=== PATIENT | male | born 1965 | race Caucasian/White ===

== ENCOUNTER 2020-01-01 17:08 | Outpatient (REF) | payer OTHER, SELFPAY | END 2020-01-01 17:09 | disposition home or self-care (01) | LOC: HO.LAB 17:08 | PROVIDERS: Visit Provider Internal Medicine | DX: Z20.828 Contact with and (suspected) exposure to other viral communicable diseases (principal) | CPT/HCPCS: U0003 ==

== ENCOUNTER 2020-01-26 12:08 | Outpatient (REF) | payer OTHER, SELFPAY | END 2020-01-26 12:09 | disposition home or self-care (01) | LOC: HO.LAB 12:08 | PROVIDERS: Visit Provider Internal Medicine | DX: Z20.828 Contact with and (suspected) exposure to other viral communicable diseases (principal) | CPT/HCPCS: C9803; U0003 ==

== ENCOUNTER 2023-10-05 09:52 | Outpatient (AMB) | payer OTHER, SELFPAY ==
--- NOTE | 2023-10-05 09:54 | HO.SPINEOV ---
Intake Visit Reasons: Back pain Intake Note: Mr. Murray is here today c/o back pain. Wood Lather Required: No Assessment & Plan Assessment & Plan (1) Lumbar disc herniation: Code(s): M51.26 - Other intervertebral disc displacement, lumbar region Category: Medical Plan Mr Murray is a gentleman known to Dr. Londono practice when he was at [facility]. At that time he was diagnosed with a herniated disc at L4-5 but the pain had gone away so we elected not to do surgery.. He has a history of previous back surgery, possibly a lumbar microdiskectomy done in [facility] about 20 years ago. In early August, he noticed onset of severe back pain radiating down his right leg into his right calf. It started when he was getting in a car. At that time, he was bent over to the side completely immobile and in severe pain. He tried an oral steroid pack which normally helps him, but it did nothing. He went on a trip to [place] and did undergo a series of injections. These were intramuscular injections of steroid medications and pain killers and it did seem to get him through the wedding that he was in [place] to attend, but once he got back the pain became just as severe. Through the years, he has been through all the typical treatments for degenerative disc and sciatica including physical therapy. He is in the office today for evaluation. He is very uncomfortable, having a hard time standing up, using a cane. His strength is grossly normal. He has a well healed 4-5 inch long incision in the midline of his low back. I reviewed his imaging from [facility] in 2022 in April this shows a herniated disc off to the right at L4-5. I believe he may have a surgical defect at L5-S1 suggestive of his previous surgery but this study was done without gadolinium which makes his slightly more difficult to evaluate. I am going to order an urgent MRI because of the amount of pain he has been in now for 2 months that has not gone away. I suspect he has a recurrent herniated disc, I will order an MRI at the [facility] open MRI at his request with and without gadolinium. From the standpoint of his overall medical health, he is very healthy, does not have any active chronic medical issues and takes no regular medications. Total amount of time spent in this visit was 20 minutes in discussion of symptoms, previous lumbar MRI imaging results and subsequent plan of care Yohan Londono MD,PhD [facility] Orders: Orders MR lumbar spine wo/w con Today M51.26 - Other intervertebral disc displacement, lumbar region Coding Level of Care Code Est Pt Level 3 (01330) Diagnoses Lumbar disc herniation M51.26
== END 2023-10-05 10:24 | disposition home or self-care (01) ==
PROVIDERS: Visit Provider Physician Assistant
DX: M51.26 Other intervertebral disc displacement, lumbar region (principal)
CPT/HCPCS: 99213

== ENCOUNTER → 2023-10-05 09:52 | Outpatient (BNVA) | payer OTHER, SELFPAY | PROVIDERS: Visit Provider Physician Assistant ==

== ENCOUNTER 2023-10-22 15:05 | Outpatient (AMB) | payer OTHER, SELFPAY ==
--- NOTE | 2023-10-22 15:41 | HO.SPINEOV ---
Intake Visit Reasons: mri f/u Intake Note: Mr. Murray is here to F/u on MRI. Assessment & Plan Assessment & Plan (1) Lumbar disc herniation: Code(s): M51.26 - Other intervertebral disc displacement, lumbar region Category: Medical Plan Mr Murray is back in the office to discuss his recent MRI at [facility]. Please see my previous note for specifics. In the interim since I last saw him, his pain has increased severely down his right leg. He is barely able to walk, he can not sleep. He is also developed weakness of his right foot. I reviewed his imaging, showed to Dr. Londono, he has postsurgical changes at what looks like L4-5 and L5-S1 on the contrast images. He has a large disc herniation on the right at L4-5 causing moderate to severe central canal stenosis. I do not think this is something that is going to be amenable to physical therapy or injections. Especially in light of his severe leg pain, weakness and inability to walk or sleep I think the appropriate thing to do is to offer him a microdiskectomy redo right L4-5. I showed Dr. Londono the imaging and he agrees. The patient understands that if he has another recurrent disc here he would ultimately need a fusion. I called him in oxycodone and gabapentin just to help him get through the preoperative perion until he surgery next week. Pt was given risk and benefits of surgery including but not limited to infection, hematoma , nerve injury,durotomy, weakness,bowel/bladder injury, persistent pain, recurrent disc herniation as well as the option to continue with conservative treatment and patient wishes to proceed with surgery. Pt is aware they should stop their motrin, aspirin 7 days prior to surgery. All questions were answered to the best of our ability. If there is anything about this patients medical history that we have overlooked or concerns you have about us proceeding with surgery we would appreciate any input you can offer. Total amount of time spent in this visit was 20 minutes in discussion of symptoms, lumbar imaging results and subsequent plan of care Yohan Londono MD,PhD [facility] Medications: New oxycodone Partial Fill upon patient request. 5 mg PO Q6H PRN 30 tabs 0RF pain gabapentin 300 mg PO TID 90 caps 11RF Coding Level of Care Code Est Pt Level 3 (68680) Diagnoses Lumbar disc herniation M51.26
--- OUTSIDE RECORDS SUMMARY | 2023-10-24 07:49 | XMS_ITS ---
Author Organization [facility] Address [address] [facility] [address] [place] [address] Care Team Providers Care Yarn Dyer Name Role Phone EWELINA RAMOS Unavailable [phone] REASON FOR VISIT WM f/u Encounters Encounter Location Date Provider Diagnosis [facility] [address] [facility] [address] [place] [address] 12/08/2022 EWELINA RAMOS PLAN OF TREATMENT No Information Progress Notes * BRISEIDA NAPOLESDOB:1965 ( 57 yo M)Acc No.[id number]:12/08/2022 Patient:??BRISEIDA NAPOLES :1965?Age:57 Y?Sex:Maggie mcfarlane Address:[address] [place] [address] [place] [address] * true * Date:??
--- OUTSIDE RECORDS SUMMARY | 2023-10-24 07:49 | XMS_ITS | Patient Health Record ---
Author Organization [employer] Address [address] [facility] [address] [place] [address] Care Team Providers Care Business Mgr Name Role Phone EWELINA RAMOS Unavailable [phone] ALLERGIES No Known Allergies REASON FOR REFERRAL No Information MEDICATIONS Medication SIG (Take, Route, Fr equency, Duration) Notes Start Date End Date Status Wegovy 1 MG/0.5ML 1 mg Subcutaneous on ce a week for 30 days 06/16/2022 Active Viagra Active LORazepam 2 MG 1 tablet at bedtime as needed Orally Once a day PRN Active Valtrex 500 MG 1 tablet Orally Once a day Active IMMUNIZATIONS Vaccine Route Administration Date Status Comme nts COVID Moderna Unknown 05/08/2020 Administered COVID Moderna Unknown 06/05/2020 Administered COVID Moderna Unknown 01/17/2021 Administered SOCIAL HISTORY Tobacco Use: Social History Observation Description Date Details (start date - stop date) Never Smoker NA - NA Sex Assigned At : Social History Observation Description Sex Assigned At Unknown Tobacco Use/Smoking Question Answer Notes Are you a nonsmoker Alcohol Screen (Audit-C) Question Answer Notes Did you have a drink contain ing alcohol in the past year? Yes How often did you have a dri nk containing alcohol in the past year? Monthly or less (1 point) Points 1 Interpretation Negative PROBLEMS Problem Type ICD Code Onset Dates Problem Status W/U Status Risk SNOMED Code Notes Problem Body mass index [BMI] 32.0-32.9, adult (Z68.32) Active confirmed Body mass index 30.00 to 34.99 (81998742876 4107) Problem Body mass index [BMI] 34.0-34.9, adult (Z68.34) Active confirmed Body mass index 30.00 to 34.99 (96148294891 4107) Encounters Encounter Location Date Provider Diagnosis [facility] [address] [facility] [address] [facility] [place] [address] 12/08/2022 EWELINA RAMOS PLAN OF TREATMENT Pending Test Test Name Order Date COMPREHENSIVE METABOLIC PANEL 03/02/2022 HEMOGLOBIN A1C WITH EST GLUCOSE 03/02/20 22 Insurance Providers Payer Name Payer Address Payer Phone Subscriber Number Group Number Insured Name Patient Relationship to Insured Coverage Start Date Coverage End Date [facility] [address] [place] [address] [id number] BRISEIDA NAPOLES Self - patient is the insured 2 MEDICAL (GENERAL) HISTORY Medical History History ICD Code Personal history of COVID-19 08/2021 herpes genitalia takes Lorazepam as needed for blood draw s/procedures Surgical History Surgery Date(Month/Year) back surgery 2000
--- OUTSIDE RECORDS SUMMARY | 2023-10-24 07:49 | XMS_ITS ---
Author Organization [facility] Address [address] [address] Care Team Providers Care Brake Repairer Railroad Name Role Phone EWELINA RAMOS Unavailable [phone] ALLERGIES No Known Allergies REASON FOR VISIT weight follow up MEDICATIONS Medication SIG (Take, Route, Fr equency, Duration) Notes Start Date End Date Status Wegovy 1 MG/0.5ML 1 mg Subcutaneous on ce a week for 30 days 06/16/2022 Active Viagra Active LORazepam 2 MG 1 tablet at bedtime as needed Orally Once a day PRN Active Valtrex 500 MG 1 tablet Orally Once a day Active VITAL SIGNS Temperature 96.5 degrees Fahrenheit 08/08/19 23 Blood pressure systolic 112 mm Hg 08/08/19 23 Blood pressure diastolic 82 mm Hg 023 Heart Rate 75 /min 08/07/2022 Height 72 in 08/07/2022 Weight 234 lbs 08/07/2022 BMI 31.73 kg/m2 08/07/2022 Oximetry 98 % 08/07/2022 Encounters Encounter Location Date Provider Diagnosis [facility] [address] [facility] [address] [place] [address] 08/07/2022 EWELINA RAMOS Other obesity due to excess calories E66.09 and Dietary counseling and surveillance Z71.3 ASSESSMENTS Encounter Date Diagnosis Assessment Notes Treatment Notes Treatment Clinical Notes 08/07/2022 Other obesity due to excess calories (ICD-10 - E66.09) 08/07/2022 Dietary counseling and surveillance (ICD-10 - Z71.3) PLAN OF TREATMENT Next Appt Details Follow Up: 4 Weeks, Reason: Progress Notes * CHRIS NAPOLES:1965 ( 56 yo M)Acc No.[id number]:08/07/2022 Patient:??BRISEIDA NAPOLES Provider:??EWELINA RAMOS MD :1965?Age:56 Y?Sex:Maggie mcfarlane Date:08/07/2022 Address:[address] [place], [place] [id number] Subjective: * Chief Complaints: * ?Weight follow up * HPI: ?F/U Obesity:?56 year old male presents with c/o Patient is here for f/u on weight management.?Patient has lost weight??Highest?weight?on?his?scale?was?264?lbs. He?lost?17 lbs?in?total?and?gained 2 lbs since?last?visit.?patient is on Meal replacement??improved compliance with low-calorie diet.?Patient is exercising??Denies, tries to walk on some days.?frequency of exercise?? .?patient on pharmacotherapy??continue Wegovy 1 MG weekly for the next 4 weeks.?tolerating medication??yes.?Sleep pattern??snoring.? He is still not exercising as his girlfriend had a recent surgery and cannot exercise with him. He will be flying to [place] and [place] soon. * ROS:?General/Constitutional:?Overall health??Good.??Change in appetite??denies.??Chills??denies.??Fever??denies.??Night sweats??denies.??Sleep disturbance??denies.??Weight gain??denies.??Weight loss??denies.?Neurologic:?Difficulty speaking??denies.??Dizziness??denies.??Gait abnormality??denies.??Headache??denies.??Loss of strength??denies.??Memory loss??denies.??Seizures??denies.??Tingling/Numbness??denies ?.?Ophthalmologic:?Blurred vision??denies.??Discharge??denies.??Dry eye??denies.??Red eye??denies.?ENT:?Change in Voice??Denies.??Cold Symptoms??Denies.??Cough??Denies.??Dizziness??Denies.??Nasal Congestion??Denies.??Otalgia??Denies.??Nosebleed??denies.??Snoring??admits.?Cardiovascular:?Diaphoresis??Denies.??Pedal Edema??Denies.??PND (Paroxsymal nocturnal dyspnea)??Denies.??Chest pain??denies.??Difficulty laying flat??denies.??Dyspnea on exertion??denies.??Heart murmur??denies.??Orthopnea??denies.?Respiratory:?Snoring??Admit.??Asthma??denies.??Cough??denies.??Shortness of breath with exertion??denies.??Sputum production??denies.??Wheezing??denies.?Gastrointestinal:?Change in bowel habits??denies.??Constipation??admits.??Decreased appetite??denies.??Diarrhea??denies.??Heartburn??denies.??Nausea??denies.??Vomit ing??denies.?Musculoskeletal:?tingling/numbness??Denies.??myalgias??Denies.??Joint Swelling??Denies.??extremeties??normal.??Arthritis??denies.??Back problems??denies.??Carpal tunnel??denies.??Joint stiffness??denies.??Muscle aches??denies.?Endocrine:?Bowel Changes??Denies.??Breast Discharge??Denies.??poor libido??Denies.??Cold intolerance??denies.??Excessive sweating??denies.??Excessive thirst??denies.??Frequent urination??denies.??Thyroid problems??denies.?Skin:?Bruising??Denies.??Eczema??denies.??Hair changes??denies.??Rash??denies.??Skin lesion(s)??denies.?Psychiatric:?Anxiety??denies.??Depressed mood??denies.??Difficulty sleeping??denies.??Nervous breakdown??denies.??Substance abuse??denies.?Urology:?abnormal menstrual bleeding??denies.??blood in urine??denies.??burning on urination??denies.??difficulty urinating??denies.??discharge??denies.??dysuria??denies.? * Medical History:?? * Medications:??TakingViagra V altrex 500 MG Tablet 1 tablet Orally Once a day LORazepam 2 MG Tablet 1 tablet at bedtime as needed Orally Once a day , Notes to Pharmacist: PRNWegovy 1 MG/0.5ML Solution Auto-injector 1 mg Subcutaneous once a week Medication List reviewed and reconciled with the patientTaking Viagra Taking Valtrex 500 MG Tablet 1 tablet Orally Once a day Taking LORazepam 2 MG Tablet 1 tablet at bedtime as needed Orally Once a day , Notes to Pharmacist: PRNTaking Wegovy 1 MG/0.5ML Solution Auto-injector 1 mg Subcutaneous once a week Medication List reviewed and reconciled with the patient * Allergies:??N.K.D.A.no[Aller gies Verified] Objective: * Vitals:??Temp:96.5F, HR:75/m in, BP:112/82mm Hg, Wt:234lbs, BMI:31.73Index, Ht: 72 in, Oxygen sat %:98%. * Examination: ?General Examination: ?GENERAL APPEARANCE:??well developed, well nourished, in no acute distress.?HEAD:??normocephalic, atraumatic.?EYES:??pupils equal, round, reactive to light and accommodation, sclera non-icteric.?EARS:??normal.?ORAL CAVITY:??mucosa moist.?THROAT:??clear.?OROPHARYNX??Normal.?SINUSES??Normal.?NECK/THYROID:??neck supple, full range of motion, no cervical lymphadenopathy.?SKIN:??warm and dry, no suspicious lesions.?HEART:??regular rate and rhythm, S1, S2 normal,??,?no murmurs.?LUNGS:??clear to auscultation bilaterally.?ABDOMEN:??soft, nontender, nondistended, bowel sounds present, normal.?EXTREMITIES:??normal.?PERIPHERAL PULSES:??normal.?NEUROLOGIC:??nonfocal,? appropriate?motor strength normal upper and lower extremities, sensory exam intact.?Psychiatry??Normal.?PODIATRIC:??NORMAL?,?BILATERALLY.? Assessment: * Assessment: 1.??Other obesity due to exc ess calories - E66.09 (Primary)??2.??Dietary counseling and surveillance - Z71.3?? Mr. Napoles is a 56 year old g entleman here today for medical weight management. Highest weight on his scale was 264 lbs. He lost 17 lbs in total and gained 2 lbs since last visit. Restrict calorie consumption and advised to be consistent with diet. Consume more proteins. Advised to exercise at least 3 times a week and switch up his routine. Increase exercise intensity and duration as tolerated. Monitor dry weight. He will be flying to [place] and [place] soon. Dietary recommendations. Food recall was done today and patient advised to be on low calorie, low carbohydrate diet. Restrict calories to less than 1500 kcal in 24 hours. Low glycemic index foods and encouraged. Meal replacements were recommended. Advised to use [id number] multivitamins and vitamin D. Advised to use calorie counter and adhere to portion control. Monthly goal is to lose 4-6 pounds Pharmacotherapy. Continue Wegovy 1 MG weekly for the next 4 weeks. Exercise. Patient encouraged to increase frequency, intensity and duration of exercise. Encouraged to burn at least 250-500 kcal in one session. Also encouraged to do weight training Assess. Different risk factors discussed with the patient and addressed Advise. Patient was given clear And specific advise that she will comply with Low-calorie diet and try not to exceed more than 1300 kcal in 24 hours. Agree. Mutually agreed to work together to achieve appropriate goals Assist. Motivational interviewing done. Arrange. Follow-up appointment arranged. Counseling. 15 minutes spent Face to face with the patient more than 50% of time was spent counseling. Plan: * Treatment: * Procedure Codes:?? * Follow Up:??4 Weeks * Images: * Sign off status: Completed true * Provider:??EWELINA RAMOS MD Date:??07/2022 History and Physical Notes * HPI (History of Present Illness) Category Sub-Category Detail Notes F/U Obesity Patient is here for f/u on weigh t management Patient has lost weight Highest weight o n his scale was 264 lbs. He lost 17 lbs in total and gained 2 lbs since last visit patient is on Meal replacement improved compliance with low-calorie diet Patient is exercising Denies, tries to w alk on some days frequency of exercise patient on pharmacotherapy continue Wego vy 1 MG weekly for the next 4 weeks tolerating medication yes Sleep pattern snoring Examination Category Sub-Category Detail Notes General Examination GENERAL APPEARANCE: well dev eloped, well nourished, in no acute distress HEAD: normocephalic, atrau matic EYES: pupils equal, round, reactive to light and accommodation, sclera non-icteric EARS: normal THROAT: clear NECK/THYROID: neck supple, full ra nge of motion, no cervical lymphadenopathy HEART: regular rate and rhy thm, S1, S2 normal, , no murmurs LUNGS: clear to auscultatio n bilaterally ABDOMEN: soft, nontender, non distended, bowel sounds present, normal NEUROLOGIC: nonfocal, appropriat e motor strength normal upper and lower extremities, sensory exam intact SKIN: warm and dry, no denis picious lesions EXTREMITIES: normal PERIPHERAL PULSES: normal ORAL CAVITY: mucosa moist PODIATRIC: NORMAL , BILATERALLY Psychiatry Normal OROPHARYNX Normal SINUSES Normal
--- OUTSIDE RECORDS SUMMARY | 2023-10-24 07:49 | XMS_ITS ---
Author Organization [facility] Address [address] [facility] [address] [place] [address] Care Team Providers Care Continuum Of Care Manager Name Role Phone EWELINA RAMOS Unavailable [phone] REASON FOR VISIT 4 week f/u Encounters Encounter Location Date Provider Diagnosis [facility] [address] [facility] [address] [place] [address] 2022 EWELINA RAMOS PLAN OF TREATMENT No Information Progress Notes * DONY BRISEIDADOB:1965 ( 58 yo M)Acc No.[id number]:2022 Patient:??BRISEIDA NAPOLES Provider:??EWELINA RAMOS MD :1965?Age:57 Y?Sex:Maggie mcfarlane Date:2022 Address:[address] [place], [place] [address] Subjective: * Chief Complaints: * ?1. 4 week f/u. * Medical History:?? Objective: Assessment: Plan: * Treatment: * Images: * Sign off status: Pending * Provider:??EWELINA RAMOS MD Date:??08/2022
== END 2023-10-22 16:00 ==
LOC: HO.HNS 15:05
PROVIDERS: Visit Provider Physician Assistant
DX: M51.26 Other intervertebral disc displacement, lumbar region (principal)
CPT/HCPCS: 99213

== ENCOUNTER → 2023-10-22 15:05 | Outpatient (BNVA) | payer OTHER, SELFPAY | PROVIDERS: Visit Provider Physician Assistant ==

== ENCOUNTER 2023-10-30 08:18 | Day surgery (SDC) | payer OTHER, SELFPAY ==
[2023-10-24 15:33] VITALS: BMI 33.9
[2023-10-30] VITALS (8 sets, daily range): BP systolic 127–147; BP diastolic 74–101; PULSE 75–84; RESP 16–18; TEMP 36.1–36.9; O2SAT 96–98
--- OUTSIDE RECORDS SUMMARY | 2023-10-30 08:21 | XMS_ITS ---
Author Organization [facility] Address [address] [facility] [address] [place] [address] Care Team Providers Care Audio Production Instructor Name Role Phone EWELINA RAMOS Unavailable [phone] REASON FOR VISIT WM f/u Encounters Encounter Location Date Provider Diagnosis [facility] [address] [facility] [address] [place] [address] 12/08/2022 EWELINA RAMOS PLAN OF TREATMENT No Information Progress Notes * BRISEIDA NAPOLESDOB:1965 ( 57 yo M)Acc No.[id number]:12/08/2022 Patient:??BRISEIDA NAPOLES :1965?Age:57 Y?Sex:Maggie mcfarlane Address:[address] [place] [address] [place] [address] * true * Date:??
--- OUTSIDE RECORDS SUMMARY | 2023-10-30 08:21 | XMS_ITS ---
Author Organization [facility] Address [address] [facility] [address] [place] [address] Care Team Providers Care Mva Reactor Operator Head Name Role Phone EWELINA RAMOS Unavailable [phone] REASON FOR VISIT 4 week f/u Encounters Encounter Location Date Provider Diagnosis [facility] [address] [facility] [address] [place] [address] 2022 EWELINA RAMOS PLAN OF TREATMENT No Information Progress Notes * DONY BRISEIDADOB:1965 ( 58 yo M)Acc No.[id number]:2022 Patient:??BRISEIDA NAPOLES Provider:??EWELINA RAMOS MD :1965?Age:57 Y?Sex:Maggie mcfarlane Date:2022 Address:[address] [place], [place] [address] Subjective: * Chief Complaints: * ?1. 4 week f/u. * Medical History:?? Objective: Assessment: Plan: * Treatment: * Images: * Sign off status: Pending * Provider:??EWELINA RAMOS MD Date:??08/2022
--- OUTSIDE RECORDS SUMMARY | 2023-10-30 08:21 | XMS_ITS ---
Author Organization [facility] Address [address] [address] Care Team Providers Care Teacher Assistant Name Role Phone EWELINA RAMOS Unavailable [phone] ALLERGIES No Known Allergies REASON FOR VISIT [...] 08/07/2022 Encounters Encounter Location Date Provider Diagnosis [facility] [address] [facility] [address] [place] [address] 08/07/2022 EWELINA RAMOS Other obesity due to [...] * CHRIS NAPOLES:1965 ( 56 yo M)Acc No.[id number]:08/07/2022 Patient:??BRISEIDA NAPOLES Provider:??EWELINA RAMOS MD :1965?Age:56 Y?Sex:Maggie mcfarlane Date:08/07/2022 Address:[address] [place], [place] [address], [id number] Subjective: * Chief Complaints: * ?Weight follow [...] with him. He will be flying to [place] and [place] soon. * ROS:?General/Constitutional:?Overall health??Good.??Change in [...] dry weight. He will be flying to [place] and [place] soon. Dietary recommendations. Food recall was done today and patient advised to be on low calorie, low carbohydrate diet. Restrict calories to less than 1500 kcal in 24 hours. Low glycemic index foods and encouraged. Meal replacements were recommended. Advised to use ilir-ffo-[id number] multivitamins and vitamin D. Advised to use [...]
--- OUTSIDE RECORDS SUMMARY | 2023-10-30 08:22 | XMS_ITS | Patient Health Record ---
Author Organization [employer] Address [address] [facility] [address] [place] [address] Care Team Providers Care Interior Design Program Chair Name Role Phone EWELINA RAMOS Unavailable [phone] ALLERGIES No Known Allergies REASON FOR REFERRAL [...] confirmed Body mass index 30.00 to 34.99 ([id number] 4107) Problem Body mass index [BMI] 34.0-34.9, adult (Z68.34) Active confirmed Body mass index 30.00 to 34.99 (12200561852 4107) Encounters Encounter Location Date Provider Diagnosis [facility] [address] [facility] [address] [facility] [place] [address] 12/08/2022 EWELINA RAMOS PLAN OF TREATMENT Pending Test Test Name Order Date COMPREHENSIVE METABOLIC PANEL 03/02/2022 HEMOGLOBIN A1C WITH EST GLUCOSE 03/02/20 22 Insurance Providers Payer Name Payer Address Payer Phone Subscriber Number Group Number Insured Name Patient Relationship to Insured Coverage Start Date Coverage End Date [facility] [address] [facility] [place] [address] [id number] BRISEIDA NAPOLES Self - patient is the insured 2 MEDICAL (GENERAL) HISTORY Medical History History ICD Code Personal history of COVID-19 08/2021 herpes genitalia takes Lorazepam as needed for blood draw s/procedures Surgical History Surgery Date(Month/Year) back surgery 2000
[2023-10-30] MEDS: Gabapentin 300 MG CAPSULE PO (08:58)
[2023-10-30] MEDS: methocarbamoL 750 MG TABLET PO (08:58)
[2023-10-30] MEDS: Lactated Ringers 1,000 ML 80 ML IVCONT (09:07)
[2023-10-30] MEDS: oxyCODONE HCl Immed Release 5 MG TABLET PO (09:19)
--- NOTE | 2023-10-30 09:46 | MHC.SHP ---
Pre-Procedural Eval Section A - 24 Hr Update-Section A only Date of Service: 10/30/23 The patient is an INPATIENT: No Section B - Complete if H&P > 30 days Chief Complaint: Other intervertebral disc displacement, lumbar reg Details of Present Illness: Right lumbar radiculopathy Allergies: Allergies Allergy/AdvReac Type Severity Reaction Status Date / Time amoxicillin AdvReac Intermediate Nausea Verified 10/24/23 15:29 Review of Systems Sugical H&P ROS: Negative: Constitution, Cardiovascular, Respiratory, Neurological, Psychiatric, Hem-Onc, Allergic/Immunologic, Gastrointestinal, Genitourinary, Integumentary, Endocrine and Eyes/Ears/Nose/Throat and Yes, Specify: Musculoskeletal (Right lumbar radiculopathy) Exam Surgical H&P Exam: Normal: HEENT, Normal: Heart, Normal: Lungs, Normal: Extremities, Normal: Abdomen, Normal: Skin and Normal: Neurological (Awake and alert) Plan Diagnosis/Plan: Unchanged I have reviewed the history and physical and performed a pertinent physical examination on my patient. No changes have occurred unless specified. Right L4-5 redo lumbar microdiskectomy for recurrent disc herniation. Time Spent With Patient Time: Total time managing care of this patient today _5___ minutes.
--- NOTE | 2023-10-30 10:26 | HO.ANESPROP2 ---
HPI - Anesthesia Eval Consult details Narrative: 58 M for redo microdisectomy PMFSH Active Problems Active Problems: All Active Problems (Updated 10/25/23 @ 11:49 by Meme Moise RN) Lumbar disc herniation (Acute) Past Medical History Medical History (Updated 10/25/23 @ 11:49 by Meme Moise RN) Claustrophobia Herpes Back pain Severe needle phobia Anxiety Insomnia Family History Family history of problems with anesthesia: No Surgical History Surgical History (Updated 10/24/23 @ 15:28 by Meme Moise RN) History of blepharoplasty (~04/2022) Hx of microdiscectomy (~2000) History of Problems with Anesthesia: No Social History Social History (Updated 10/24/23 @ 15:35 by Meme Moise RN) Household Members: Spouse Housing: House Are you a primary director of critical care to a significant other at home: No Do you presently have visiting nurse or other home services: No Comment: aware of trip hazard Patient Tobacco Use Status: Never used Tobacco Use of substances other than those prescribed or required for medical reasons: No Have you been hit, kicked, punched, or otherwise hurt by someone within the past year? If so, by whom?: No Are you DNR?: No Advance Directives: No (will bring dos) Advance Directives Information Provided: Yes Advance Directives on File: No Healthcare Proxy: No (meño bring dos) Recently lost weight without trying: No Nutrition Risks: No Nutritional Risk Poor oral hygiene: No Meds Allergies Allergy/AdvReac Type Severity Reaction Status Date / Time amoxicillin AdvReac Intermediate Nausea Verified 10/24/23 15:29 Active Medications: Current Medications Lactated Ringer's (Lr) 1,000 mls @ 80 mls/hr IVCONT .[id number] BASIL Last Admin: 10/30/23 09:07 Dose: 80 mls/hr Home Medications ?Medication ?Instructions ?Recorded ?Confirmed ?Last Taken ?Type acetaminophen 500 mg tablet 1,000 mg PO Q6H PRN Pain 10/24/23 10/24/23 Unknown History cyclosporine 0.05 % eye drops in a 1 drp ophthalmic (eye) BID 10/24/23 10/24/23 Unknown History dropperette (Restasis) lorazepam 2 mg tablet 2 mg PO DAILY PRN Anxiety 10/24/23 10/24/23 10/30/23 07:00 History valacyclovir 500 mg tablet 500 mg PO DAILY 10/24/23 10/24/23 Unknown History Exam Height,Weight and Vital Signs: Height 6 ft Weight 250 lb Last Vital Signs Temp 98.4 F 10/30/23 08:53 Pulse 75 10/30/23 08:53 Resp 16 10/30/23 08:53 BP 146/101 H 10/30/23 08:53 Pulse Ox 97 10/30/23 08:53 O2 Del Method Room Air 10/30/23 08:53 Airway Mallampati Class: II TM Dist: >3cm Neck ROM: Full Loose/Missing/Broken Teeth: No Assessment and Plan Assessment Anesthesia Assessment: Anesthesia Plan Discussed and Chart Reviewed Final Anesthetic Review Family History of Problems with Anesthesia: No History of Problems with Anesthesia: No NPO: Yes ASA Class: II Final Preanesthetic Review: No Changes in Pt Med Stat, Meds/Allgs Chart Reviewed, Consent Obtained/Reviewed and Anes Risks/Benef Reviewed Patient Risk: Low Procedure Risk: Low Anesthetic Plan Anesthetic Plan: GA Disposition: Standard PACU
--- NOTE | 2023-10-30 12:51 | W.PM.OPN ---
Operative Note Operative Note Date of Service: 10/30/23 Narrative: Preoperative diagnosis: Right lumbar radiculopathy due to recurrent disc herniation Postoperative diagnosis: Same Procedure: Right L4-5 redo lumbar microdiskectomy with microscope Surgeon: Blaze Londono MD, PhD Weekend Receptionist: connie Mancilla This 58-year-old male had a previous lumbar microdiskectomy done in another institution. He presented with acute severe right leg pain with an MRI showing a large extruded disc herniation L4-L5 compressing the right L5 nerve. The patient was offered a lumbar microdiskectomy to decompress the nerve root. The procedure complications were explained. The patient was consented. The patient was brought to the operating room and endotracheally intubated. The patient was turned in a prone position on the Flo frame. Prepping and draping was done followed by time-out. The physician commercial assistant provided the access to the L4-5 interspace. The previous mid lumbar incision was partially opened followed followed by release of the paravertebral muscles on the right side to expose the L4-5 interspace. An intraoperative x-rays obtained to confirm the correct level. The microscope was brought in. I took over the procedure. The previous L4 laminotomy was extended cranially. No flavum ligament was present. Significant scarring of the thecal sac and L5 nerve root was encountered. I think a small durotomy occurred during release of the scar tissue from under the thecal sac. The fluid leak was self-limiting. The procedure continued as planned. I released all scar tissue lateral from the L5 nerve root in an attempt to mobilize the L5 nerve root which was successful. Then the search for the disc herniation started. Eventually a large disc fragment was evacuated from under the thecal sac which producing immediate decompression of the nervous structures. The L4-5 disc space was inspected residual fragments but none were found. A Valsalva maneuver was done and no spinal fluid leak was seen. I inspected the suspicious site but did not find active spinal fluid leak. I left piece of DuraGen behind as a precaution. The microscope was removed. Marcaine was injected intramuscularly.The incision was closed in two layers. Steri-Strips used to approximate seizure. An op-site were taken there was used to cover the incision. All sponge and needle counts were correct. Patient was extubated and transported in stable condition to recovery room. this procedure was done with the aid of a physician commercial assistant who performed the initial exposure until the microscope was brought in and performed the closure of the incision. Anesthesia: General Blood loss: 10 mL Complications: None Specimen: None Surgical time: 65 minutes Disposition: Discharge home
--- NOTE | 2023-10-30 12:56 | P.DS_ITS ---
DS: Providers Provider Date of Service: 10/30/23 Date of discharge: 10/30/23 Primary care physician: Unknown Physician Admitting clinician: Blaze Londono DS: Diagnosis Discharge Diagnosis (1) Lumbar disc herniation: Status: Acute DS: Summary Time Attestation Discharge Coordination Time (in mins): 6 Quality: Safe Use of Opioids Does Pt have an Active Cancer Diagnosis on the Problem List?: No Quality: Stroke Does the patient have a stroke diagnosis?: No Physical Exam Vital Signs: Vital Signs: Last Vital Signs Temp 98.4 F 10/30/23 08:53 Pulse 75 10/30/23 08:53 Resp 16 10/30/23 08:53 BP 146/101 H 10/30/23 08:53 Pulse Ox 97 10/30/23 08:53 O2 Del Method Room Air 10/30/23 08:53 BMI result Body Mass Index 33.9 Discharge Plan Discharge Patient Disposition: Home, Self-Care Referrals: Physician,Unknown J [Primary Care Provider] - 1 Week Discharge Medications: New oxycodone 5 mg tablet 5 mg PO Q4H PRN (Reason: pain) Qty: 30 0RF Rx Instructions: Partial Fill upon patient request. Continued valacyclovir 500 mg tablet 500 mg PO DAILY cyclosporine [Restasis] 0.05 % dropperette 1 drp ophthalmic (eye) BID acetaminophen 500 mg Tablet 1,000 mg PO Q6H PRN (Reason: Pain) lorazepam 2 mg Tablet 2 mg PO DAILY PRN (Reason: Anxiety) oxycodone 5 mg tablet 5 mg PO Q6H PRN (Reason: pain) Qty: 30 0RF Rx Instructions: Partial Fill upon patient request. Discharge Orders: Discharge Order (Routine); Ordered 10/30/23 Ordered By: Yohan Sorensen Diet: Advance to usual diet Activity on Discharge: As tolerated Activity Restrictions/Additional Instructions: After your spinal surgery we ask you to observe the following restrictions/guidelines: YOU HAD A SMALL SPINAL FLUID LEAK SEEN AT THE TIME OF SURGERY. IT IS NORMAL TO EXPERIENCE MILD HEADACHES WHEN THIS HAPPENS. IF YOU EXPERIENCE SEVERE HEADACHES PLEASE CALL OUR OFFICE TO UPDATE US. USUALLY IT WILL GO AWAY IF YOU STAY FLAT IN BED FOR A DAY. IF YOU EXPERIENCE ANY LEAKING FROM YOUR WOUND WHICH LOOKS LIKE CLEAR WATER, WE ASK THAT YOU CALL US RIGHT AWAY. [phone] Activity: It is normal to feel some discomfort as you increase your activity, but that will improve with time. We ask you avoid heavy lifting or acitivities that cause pain. As a general rule, 8lbs is a safe limit for lifting right after surgery. Walk as much as you feel comfortable but not to exhaustion. You will feel extra tired the first few days after surgery. Stay well hydrated. It is OK to walk up and down stairs You may return to driving when you are off narcotics (such as vicodin, oxycodone, dilaudid, etc), and you are back to normal functional capacity. If you have any concerns please check with office before driving. Return to work is specific to each patient and each surgery, so please speak with your doctor/PA at first follow up. Please bring paperwork such as FMLA at that time if you need it filled out. Medications: For optimum pain control, it is best to start with a combination of 500 mg of Tylenol every 4 hours with 600 mg of Motrin every 8 hours, and use narcotics as needed in between for breakthrough pain. We will give you a short supply of narcotics after surgery (usually one weeks worth). If you need more please call the office but do not use more than prescribed. You will need to give our office 48 hours notice if you need narcotics refilled and we do not fill narcotics on weekends or evenings. If you are on a narcotic, it is a good idea to take a stool softener such as colace or senna to avoid constipation If you take blood thinner such as aspirin, Plavix, Coumadin, Effient, Eliquis etc for conditions such as Afib, DVT, Pulmonary embolus, coronary disease, stents etc please speak with your surgeon about specific details as to when you can resume these medications. You can resume NSAIDs on post op day 1 (eg: Motrin, Naproxen, etc). Follow up: Please call the office, , after surgery to arrange a 3 week follow up for wound check. Wound Care: You may remove your dressing on the first day after surgery. ?You may ?leave open to air. You have sutures in your back wound that will need to be removed in 10-14 days. Please call to arrange a follow up IT IS NORMAL FOR THE WOUND TO OOZE OR BE BLOODY FOR A FEW DAYS AFTER SURGERY. ?IF THIS HAPPENS JUST PLACE NEW DRESSING OVER IT TO AVOID STAINING CLOTHES. You may shower on post op day # 1 We ask that you do not let the water soak the wound. If it does get wet, just towel dry lightly. Please do not scrub your incision or place any type of chemical/ointment on the wound. No tub baths, pools or jacuzzis for one month. If you have any leaking or redness from your wound, or fevers, please call office Print Language: Puerto [place]ican
== END 2023-10-30 14:48 | disposition home or self-care (01) ==
PROVIDERS: Visit Provider Neurological Surgery
PROC: (CPT 63030; principal; 2023-10-30 11:00)
DX: M51.26 Other intervertebral disc displacement, lumbar region (principal); M79.604 Pain in right leg; R26.2 Difficulty in walking, not elsewhere classified
CPT/HCPCS: 63030; C1763; J0131; J0690; J1100; J1885; J2250; J2405; J2704; J3010

== ENCOUNTER → 2023-10-30 08:18 | Outpatient (BNV) | payer OTHER, SELFPAY | PROVIDERS: Visit Provider Neurological Surgery | DX: M51.16 Intervertebral disc disorders with radiculopathy, lumbar region (principal) | CPT/HCPCS: 63042; 99499 ==

== ENCOUNTER 2023-11-08 09:51 | Outpatient (AMB) | payer OTHER, SELFPAY ==
--- NOTE | 2023-11-08 10:16 | A.SPINEOV_ITS ---
Intake Visit Reasons: suture removal Intake Note: Mr. Murray is here today to have his sutures removed. Intelligence Specialist Required: No Allergies amoxicillin Adverse Reaction (Intermediate, Verified 11/08/23 10:20) Nausea Assessment & Plan Assessment & Plan (1) Lumbar disc herniation: Code(s): M51.26 - Other intervertebral disc displacement, lumbar region Category: Medical Plan Mr murray is 1 week out from his redo diskectomy L4-5 on the right. He comes in for suture removal today. We did see a flash of cerebral spinal fluid during his last surgery so we placed a running suture as a precaution. He has had no headaches. He did have some calf pain right after surgery and some numbness on the outer calf but that seems to be receding. He is overall very pleased with how the results of the surgery went. I removed his sutures today. His wound looks great. No signs of CSF leak per It is healing up nicely. We discussed activity guidelines, restrictions and expectations after microdiskectomy. I will see him back again in 2 weeks for final postoperative visit. Yohan Londono MD, PhD [facility] Coding Level of Care Code Global (55853) Diagnoses Lumbar disc herniation M51.26
== END 2023-11-08 10:42 | disposition home or self-care (01) ==
PROVIDERS: Visit Provider Physician Assistant
DX: M51.26 Other intervertebral disc displacement, lumbar region (principal)
CPT/HCPCS: 99024

== ENCOUNTER → 2023-11-08 09:51 | Outpatient (BNVA) | payer OTHER, SELFPAY | PROVIDERS: Visit Provider Physician Assistant ==

== ENCOUNTER 2024-01-04 13:02 | Outpatient (AMB) | payer OTHER, SELFPAY ==
--- NOTE | 2024-01-04 13:41 | A.SPINEOV_ITS ---
Vital Signs 01/04/24 13:41 Weight 253 lb Intake Visit Reasons: late post op Intake Note: Mr. Murray is his today for his final postoperative visit Aircraft Engine Installer Required: No Allergies amoxicillin Adverse Reaction (Intermediate, Verified 11/08/23 10:20) Nausea Assessment & Plan Assessment & Plan (1) Neurogenic claudication: Code(s): R29.818 - Other symptoms and signs involving the nervous system Category: Medical Plan Dear colleague, On 01/04/2024, I saw for postoperative visit Ajay Murray. He underwent an L4-5 microdiskectomy for recurrent right-sided disc herniation compressing the L5 nerve root. He states that the severe radiating pain down his leg disappeared. He also regained a normal posterior. His main complaint today's a burning sensation in the lateral side of his lower leg with walking and standing. Sitting down improves the symptoms. He is taking Tylenol and ibuprofen to control the symptoms. He tried gabapentin in the past for only a few days and stopped because it did not help. On exam, there is full strength. There is mild numbness in the L5 dermatome on the right side. In summary, this patient is suffering from unilateral neurogenic claudication or nerve damage. I recommended to follow-up in 3 months and repeat an MRI if the symptoms continue to be present. In the meantime I have him restart his gabapentin 900 mg a day and they told him to try this at least for 2 weeks. Thank you for letting me take care of your patient. Blaze Londono MD, PhD [facility] Trained Neurosurgeon Director, [facility] [employer] Coding Level of Care Code Global (69683) Diagnoses Neurogenic claudication R29.818
== END 2024-01-04 14:21 | disposition home or self-care (01) ==
LOC: HO.HNS 13:02
PROVIDERS: Visit Provider Neurological Surgery
DX: R29.818 Other symptoms and signs involving the nervous system (principal)
CPT/HCPCS: 99024

== ENCOUNTER → 2024-01-04 13:02 | Outpatient (BNVA) | payer OTHER, SELFPAY | PROVIDERS: Visit Provider Neurological Surgery ==

== ENCOUNTER 2025-02-03 12:34 | Outpatient (AMB) | payer OTHER, SELFPAY ==
--- OUTSIDE RECORDS SUMMARY | 2025-02-02 08:20 | XMS_ITS | Encounter Summary ---
Author Organization [facility] Address [address] [place] [address] Care Team Providers Care Casino Surveillance Officer Name Role Phone Yohan Mccarthy Primary Care Provider [phone] Encounter Details Date Type Department Care Team (Late st Contact Info) Description 02/02/2025 8:20 AM [facility] Lab Draw Station [address] [address] Obesity, unspecified (Primary Dx); Vitamin D deficiency; Screening for lipoid disorders; Chronic fatigue; Family history of endocrine and metabolic disease; Screening for phenylketonuria (PKU); Personal history of nutritional deficiency; Anemia, unspecified; Impaired fasting glucose; Vitamin B12 deficiency anemia; Routine general medical examination at a health care facility; Rotator cuff tendinitis, right Social History Tobacco Use Types Packs/Day Years Used Date Smoking Tobacco: Never Smokeless Tobacco: Never Alcohol Use Standard Drinks/Week Comments Yes 0 (1 standard drink = 0.6 oz pur e alcohol) one a week Housing Instability Answer Date Recorde d Are you worried that in the next 2 months you may not have stable housing? No 03/02/2024 Food Access & Nutrition Answer Date Rec orded Do you have access to a vari ety of food including fruits and vegetables? Yes 03/02/2024 Access to Healthcare Answer Date Record ed Within the last 3 months, ho w many times did you visit the emergency department for your medical care? 0 03/02/2024 Health Literacy Answer Date Recorded How often do you need to hav e someone help you when you read instructions, pamphlets, or other written material from your doctor or pharmacy? Never 03/02/2024 Caregiver: How often do you need to have someone help you when you read instructions, pamphlets, or other written material from your doctor or pharmacy? Not on file 03/02/2024 Financial Risk Answer Date Recorded How hard is it for you to pa y for the very basics like food, housing, medical care, and air conditioning / heating? Not very hard 03/02/2024 Transportation Answer Date Recorded Has the lack of transportati on kept you from meetings, work, or from getting things needed for daily living? No Has the lack of transportati on kept you from medical appointments or from getting medications? No 03/02/2024 Social Isolation Answer Date Recorded How often do you feel lonely or isolated from th ose around you? Never 03/02/2024 Food Risk Answer Date Recorded Within the past 12 months we worried whether our food would run out before we got money to buy more. Never true 03/02/2024 Within the past 12 months th e food we bought just didn't last and we didn't have money to get more. Never true 03/02/2024 Dependent Care Answer Date Recorded Do you need help finding or paying for care for your loved ones. For example, child welfare assistant or elderly care for an older adult? No 03/02/2024 Education Answer Date Recorded Do you think completing more education or training, like finishing a GED, going to college, or learning a trade, would be helpful for you? No 03/02/2024 Employment and Income Answer Date Recor ded During the last four weeks, have you been actively looking for work? No 03/02/2024 Living Situation Answer Date Recorded What is your living situation? 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 Not on file Not on file Not on file documented as of this encounter Plan of Treatment Upcoming Encounters Date Type Department Care Team (Late st Contact Info) Description 03/17/2025 8:30 AM EST Office Visit Adult Medicine [address] [address] Yohan Mccarthy PA [address] [place] [phone] documented as of this encounter Procedures Procedure Name Priority Date/Time Associated Diagnosis Comments PROSTATE SPECIFIC ANTIGEN SCREEN Routine 02/02/2025 8:31 AM EST Routine general medical examination at a health care facility Rotator cuff tendinitis, right THYROID STIMULATING HORMONE WITH REFLEX TO FREE T4 AND FREE T3 Routine 02/02/2025 8:31 AM EST Obesity, unspecified Vitamin D deficiency Screening for lipoid disorders Chronic fatigue Family history of endocrine and metabolic disease Screening for phenylketonuria (PKU) Personal history of nutritional deficiency Anemia, unspecified Impaired fasting glucose Vitamin B12 deficiency anemia LIPID PANEL WITH REFLEX TO DIRECT LDL Routine 02/02/2025 8:31 AM EST Obesity, unspecified Vitamin D deficiency Screening for lipoid disorders Chronic fatigue Family history of endocrine and metabolic disease Screening for phenylketonuria (PKU) Personal history of nutritional deficiency Anemia, unspecified Impaired fasting glucose Vitamin B12 deficiency anemia INSULIN, TOTAL Routine 02/02/2025 8:31 AM EST Obesity, unspecified Vitamin D deficiency Screening for lipoid disorders Chronic fatigue Family history of endocrine and metabolic disease Screening for phenylketonuria (PKU) Personal history of nutritional deficiency Anemia, unspecified Impaired fasting glucose Vitamin B12 deficiency anemia VITAMIN D 25 HYDROXY Routine 02/02/2025 8:31 AM EST Obesity, unspecified Vitamin D deficiency Screening for lipoid disorders Chronic fatigue Family history of endocrine and metabolic disease Screening for phenylketonuria (PKU) Personal history of nutritional deficiency Anemia, unspecified Impaired fasting glucose Vitamin B12 deficiency anemia HEMOGLOBIN A1C Routine 02/02/2025 8:31 AM EST Obesity, unspecified Vitamin D deficiency Screening for lipoid disorders Chronic fatigue Family history of endocrine and metabolic disease Screening for phenylketonuria (PKU) Personal history of nutritional deficiency Anemia, unspecified Impaired fasting glucose Vitamin B12 deficiency anemia FOLATE Routine 02/02/2025 8:31 AM EST Obesity, unspecified Vitamin D deficiency Screening for lipoid disorders Chronic fatigue Family history of endocrine and metabolic disease Screening for phenylketonuria (PKU) Personal history of nutritional deficiency Anemia, unspecified Impaired fasting glucose Vitamin B12 deficiency anemia VITAMIN B12 Routine 02/02/2025 8:31 AM EST Obesity, unspecified Vitamin D deficiency Screening for lipoid disorders Chronic fatigue Family history of endocrine and metabolic disease Screening for phenylketonuria (PKU) Personal history of nutritional deficiency Anemia, unspecified Impaired fasting glucose Vitamin B12 deficiency anemia COMPREHENSIVE METABOLIC PANEL Routine 02/02/2025 8:31 AM EST Routine general medical examination at a [facility] Rotator cuff tendinitis, right documented in this encounter Results * (ABNORMAL) Comprehensive metabolic panel (02/02/2025 8:31 AM EST) Sodium 141 133 - 145 mmol/L 02/02/2025 11:22 AM [facility] Potassium 4.4 3.5 - 5.5 mmol/L 02/02/2025 11:22 AM [facility] Chloride 103 96 - 110 mmol/L 02/02/2025 11:22 AM [facility] CO2 27 21 - 32 mmol/L 02/02/2025 11:22 AM [facility] Anion Gap 11 3 - 11 02/02/2025 11:22 AM [facility] Glucose 102(H) 70 - 100 mg/dL 02/02/2025 11:22 AM [facility] BUN 17 5 - 25 mg/dL 02/02/2025 11:22 AM [facility] Creatinine 1.10 0.70 - 1.30 mg/dL 02/02/2025 11:22 AM [facility] eGFR 78 >=60 mL/min/1. 73m2 02/02/2025 11:22 AM [facility] Comment:Calculation based on the Chronic Kidney Disease Epidemiology Collaboration (CKD-EPI) equation refit without adjustment for race. BUN/Creatinine Ratio 15.5 02/02/2025 11:22 AM [facility] Calcium 8.7 8.5 - 10.5 mg/dL 02/02/2025 11:22 AM [facility] AST (SGOT) 22 10 - 42 unit/L 02/02/2025 11:22 AM [facility] ALT (SGPT) 34 10 - 60 unit/L 02/02/2025 11:22 AM [facility] Alkaline Phosphatase 113 42 - 121 unit/L 02/02/2025 11:22 AM [facility] Total Protein 7.0 6.0 - 8.0 g/dL 02/02/2025 11:22 AM [facility] Albumin 4.6 3.2 - 5.0 g/dL 02/02/2025 11:22 AM [facility] Total Bilirubin 0.5 0.0 - 1.4 mg/dL 02/02/2025 11:22 AM [facility] Blood Venous blood specimen / Unknown Venipuncture / Unknown 02/02/2025 8:31 AM EST 02/02/2025 8:31 AM EST us Yohan ELAINE LAB BLOOD ORDERABLES Bella willingham Result [facility] [address] [place] [address], * Prostate specific antigen screen (02/02/2025 8:31 AM EST) PSA 0.54 0.00 - 4.00 ng/mL 02/02/2025 11:13 AM [facility] Blood Venous blood specimen / Unknown Venipuncture / Unknown 02/02/2025 8:31 AM EST 02/02/2025 8:31 AM EST Narrative [facility] - 02/02/2025 11:13 AM EST The Siemens Atellica IM Chemiluminescent Immunoassay is used. Results obtained with different assay methods or kits cannot be used interchangeably. Results cannot be interpreted as absolute evidence of the presence or absence of malignant disease. Yohan ELAINE LAB BLOOD ORDERABLES Bella l Result Performing Organization Address City/[facility]/ZIP Co de Phone Number [facility] [address] [place] [address], * Insulin, total (02/02/2025 8:31 AM EST) Pathologist [facility] Insulin 15.6 3.0 - 25.0 mcIU/mL 02/02/2025 1:39 PM EST [facility] Blood Venous blood specimen / Unknown Venipuncture / Unknown 02/02/2025 8:31 AM EST 02/02/2025 8:31 AM EST Narrative [facility] - 02/02/2025 1:39 PM EST Insulin reference range based on fasting status. Insulin values vary in non-fasting individuals. Hetal Reyes LAB BLOOD ORDERABLES Final Resul t Performing Organization Address [facility] Co de Phone Number [facility] [address] [place] [address], * Hemoglobin A1c (02/02/2025 8:31 AM EST) Hemoglobin A1C 5.3 <6.5 % LAB CHEMISTRY METHOD 02/02/2025 2:05 PM EST [facility] Mean Bld Glu Estim. 105 mg/dL LAB CHEMISTRY METHOD 02/02/2025 2:05 PM EST [facility] Blood Venous blood specimen / Unknown Venipuncture / Unknown 02/02/2025 8:31 AM EST 02/02/2025 8:31 AM EST [facility] LAB BLOOD ORDERABLES Final Resul t Performing Organization Address City/[facility]/ZIP Co de Phone Number [facility] [address] [place] [address], [place] [phone] * Folate (02/02/2025 8:31 AM EST) Folate >24.0 >=5.4 ng/ml 02/02/2025 11:23 AM EST [facility] Blood Venous blood specimen / Unknown Venipuncture / Unknown 02/02/2025 8:31 AM EST 02/02/2025 8:31 AM EST Narrative [facility] - 02/02/2025 11:23 AM EST Over the counter supplements containing high doses of biotin may interfere with this assay. If interference is suspected, patients shoud be retested after refraining from biotin supplements for 72 hours. [facility] LAB BLOOD ORDERABLES Final Resul t Performing Organization Address [facility]/ZIP Co de Phone Number [facility] [address] [place] [address], [place] [phone] * Vitamin B12 (02/02/2025 8:31 AM EST) Pathologist [facility] Vitamin B-12 806 211 - 911 pcg/mL 02/02/2025 11:17 AM EST [facility] Blood Venous blood specimen / Unknown Venipuncture / Unknown 02/02/2025 8:31 AM EST 02/02/2025 8:31 AM EST [facility] LAB BLOOD ORDERABLES Final Resul t Performing Organization Address City/[facility]/ZIP Co de Phone Number [facility] [address] [place] [address], [place] [phone] * (ABNORMAL) Lipid panel with reflex to direct LDL (02/02/2025 8:31 AM EST) Cholesterol 211(H) 0 - 200 mg/dL 02/02/2025 11:22 AM [facility] Triglycerides 143 0 - 150 mg/dL 02/02/2025 11:22 AM [facility] HDL 53 >=40 mg/dL 02/02/2025 11:22 AM [facility] LDL Calculated 129(H) 0 - 100 mg/dL 02/02/2025 11:22 AM [facility] Comment:Estimated LDL Calcul ated using equation: Total cholesterol - HDL cholesterol - (Triglycerides/5) VLDL Cholesterol Kei 28.6 mg/dL 02/02/2025 11:22 AM [facility] Non HDL Chol. (LDL+VLDL) 158(H) <145 mg/dL 02/02/2025 11:22 AM [facility] Chol/HDL Ratio 4.0 0.0 - 4.4 02/02/2025 11:22 AM [facility] Blood Venous blood specimen / Unknown Venipuncture / Unknown 02/02/2025 8:31 AM EST 02/02/2025 8:31 AM EST Hetal Reyes LAB BLOOD ORDERABLES Final Resul t [facility] [address] [place] [address], * Thyroid stimulating hormone with reflex to free t4 and free t3 (02/02/2025 8:31 AM EST) TSH 1.72 0.40 - 4.00 mcIU/mL 02/02/2025 11:18 AM [facility] Blood Venous blood specimen / Unknown Venipuncture / Unknown 02/02/2025 8:31 AM EST 02/02/2025 8:31 AM EST [employer] LAB BLOOD ORDERABLES Final Resul t Performing Organization Address City/[facility]/ZIP Co de Phone Number [facility] [address] [place] [address], [place] [phone] * Vitamin D 25 hydroxy (02/02/2025 8:31 AM EST) Vit D, 25-Hydroxy 30.8 30.0 - 80.0 ng/mL 02/02/2025 11:17 AM EST [facility] Blood Venous blood specimen / Unknown Venipuncture / Unknown 02/02/2025 8:31 AM EST 02/02/2025 8:31 AM EST [employer] LAB BLOOD ORDERABLES Final Resul t Performing Organization Address City/[facility]/ZIP Co de Phone Number [facility] [address] [place] [address], [place] [phone] documented in this encounter Visit Diagnoses Diagnosis Obesity, unspecified- Primary Vitamin D deficiency Screening for lipoid disorders Chronic fatigue Other malaise and fatigue Family history of endocrine and metabolic disease Family history of other endocrine and metabolic diseases Screening for phenylketonuria (PKU) Personal history of nutritional deficiency Anemia, unspecified Impaired fasting glucose Vitamin B12 deficiency anemia Other vitamin B12 deficiency anemia Routine general medical examination at a health care facility Rotator cuff tendinitis, right documented in this encounter Additional Health Concerns Assessment Noted Time PHQ-9 Depression Total Score: 0 03/02/20 24 2:04 PM EST documented as of this encounter Care Teams Casino Surveillance Officer Relationship Specialty Start Date End Date Yohan Mccarthy PA [address] [place] [id number] PCP - General 10/24/23 documented as of this encounter
--- NOTE | 2025-02-03 12:47 | A.OFFVIS_ITS ---
Vital Signs 02/03/25 12:48 Height 6 ft Weight 232 lb 4 oz BMI 31.5 Intake Visit Reasons: Right Achillies Pain Intake Note: Ajay is a 59 year old male who presents today as a new patient for an evaluation of his Achilles tendonitis. Patient reports his pain has improved significantly since he was prescribed meloxicam by our office. And he reports this episode of pain has been going on since 11/25/24. Allergies amoxicillin Adverse Reaction (Intermediate, Verified 02/03/25 13:06) Nausea Medication List - Last Reconciled 02/03/25 by Renee Roberts, DPM acetaminophen 1,000 mg PO Q6H PRN cyclosporine 0.05% (Restasis) 1 drp ophthalmic (eye) BID lorazepam 2 mg PO DAILY PRN meloxicam 15 mg PO DAILY methocarbamol 500 mg PO TID oxycodone 5 mg PO Q6H PRN oxycodone 5 mg PO Q4H PRN valacyclovir 500 mg PO DAILY HPI Comments Details: The patient is a 59 year old individual with a past medical history as seen below presenting with chronic right heel pain, which has been documented since at least 2018 but has been ongoing for over 10 years. The patient describes the pain as being located at the back of the heel, associated with a bone spur, and reports a sensation of the Achilles tendon tugging, with concern that it might rip. The condition significantly impacts the patient's quality of life. The patient experienced a flare-up in July and the current exacerbation began around November 25. Previously, episodes lasted 2-3 weeks, but the current episode of pain has persisted for several months, which is a concern for the patient. The patient has previously undergone physical therapy and visited a walk-in clinic for this issue. A report from 2019 described a small bone spur, which the patient believes has since enlarged. Patient states that he has changed his footwear and has also tried inserts without relief. Patient has been taking meloxicam with relief. Patient states since taking the medication has pain has now been moderate in nature. The patient also reports mild pain in the right hallux, noting it is cocked up, which causes difficulty with certain shoes unless they have a cloth top. He denies any other pedal concerns. He denies any new pedal injuries. [facility] Medical History (Updated 02/03/25 @ 13:12 by Renee Roberts DPM) Rupture of right Achilles tendon Insertional Achilles tendinopathy Other enthesopathy of right foot and ankle Right Achilles tendinitis Right leg pain Claustrophobia Herpes Back pain Severe needle phobia Anxiety Insomnia Surgical History (Updated 10/24/23 @ 15:28 by Meme Moise RN) History of blepharoplasty (~04/2022) Hx of microdiscectomy (~2000) Social History (Updated 10/24/23 @ 15:35 by Meme Moise RN) Household Members: Spouse Housing: House Are you a primary intensive care ambulance paramedic to a significant other at home: No Do you presently have visiting nurse or other home services: No Comment: aware of trip hazard Patient Tobacco Use Status: Never used Tobacco Review of Systems Const Details: - Musculoskeletal: Reports chronic pain at the posterior aspect of the right heel. Reports a sensation that the Achilles tendon might tear. Reports mild pain in the right hallux, which is described as being in a cocked up position. All systems reviewed & are unremarkable except as noted in HPI and below Physical Exam Vital Signs: BMI result Body Mass Index 31.5 Extrem Other: Right lower extremity focused physical exam: Derm: No open lesions abrasions or wounds noted. No erythema, ecchymosis, or discoloration noted. No hyperkeratotic areas or maceration noted. No clinical signs of infection noted. Skin supple and turgor within normal limits. Vascular: DP/PT pulses palpable. Capillary refill time less than 3 seconds. Temperature gradient warm to warm. No varicosities noted. No edema noted. Neuro: Protective sensation is grossly intact. MSK: Visible bony prominence noted to the posterior aspect of the heel. Pain to palpation noted at the distal insertion point of the Achilles tendon on the posterior aspect of the heel. No pain on palpation along the mid-substance or proximal aspect of the Achilles tendon. Gastrocnemius equinus noted upon silfverskoid testing. Ankle range of motion demonstrates increased dorsiflexion with the knee flexed. Hallux limitus noted. Antalgic gait unassisted noted with shuffling of the right foot. Office Procedures [facility]B Podiatry Dressing Details of Procedure: Applied heel lifts to a cam boot to be applied to the right lower extremity. [address]1129 - Strapping of foot/ankle Procedure code (CPT) selection complete Results Reviewed Results Reviewed: Patient bringing CD imaging of right ankle and foot xrays. Ordered right ankle MRI to be performed prior to next visit. Assessment & Plan Assessment & Plan (1) Right leg pain: Code(s): M79.604 - Pain in right leg Category: Medical (2) Right Achilles tendinitis: Code(s): M76.61 - Achilles tendinitis, right leg Category: Medical (3) Insertional Achilles tendinopathy: Code(s): M76.60 - Achilles tendinitis, unspecified leg Category: Medical (4) Other enthesopathy of right foot and ankle: Code(s): M77.51 - Other enthesopathy of right foot and ankle Category: Medical (5) Rupture of right Achilles tendon: Code(s): S86.011A - Strain of right Achilles tendon, initial encounter Category: Medical Plan Patient was informed and verbally consented to the use of an ambient scribe for clinic note documentation during this visit. I discussed with the patient the diagnosis of insertional Achilles tendinopathy with a Erin's deformity, explaining that the bone spur is likely causing inflammation and micro-tears in the tendon. We reviewed the patient's long- standing history of over 10 years and the significant impact on quality of life, leading to the patient's readiness for a definitive surgical solution. I explained the plan, which includes obtaining an MRI to assess the integrity of the Achilles tendon and acquiring the patient's recent x-rays. As a conservative measure in the interim, I provided the patient with a CAM boot with heel lifts to offload the tendon. We discussed conservative and surgical treatment options. - Imaging: An MRI was ordered to evaluate the Achilles tendon for tearing. - Prior Records: The patient will obtain the imaging disc from the recent x-rays taken a month ago to bring to the office. - Therapeutics: The patient was provided with a CAM boot and heel lifts to offload the Achilles tendon. - Medications: A refill for meloxicam was ordered which may be taken as needed for pain. - Patient may be weight-bearing as tolerated with the use of the cam boot. RTC in 2 weeks. Orders: Orders MR ankle RT wo con 02/03/25 M76.60 - Achilles tendinitis, unspecified leg, M76.61 - Achilles tendinitis, right leg, M77.51 - Other enthesopathy of right foot and ankle, M79.604 - Pain in right leg, S86.011A - Strain of right Achilles tendon, initial encounter [facility]B Podiatry Dressing 02/03/25 M76.60 - Achilles tendinitis, unspecified leg, M76.61 - Achilles tendinitis, right leg, M77.51 - Other enthesopathy of right foot and ankle, M79.604 - Pain in right leg, S86.011A - Strain of right Achilles tendon, initial encounter Medications: Refilled meloxicam 15 mg PO DAILY 30 tabs 0RF M79.604 - Pain in right leg Coding Level of Care Code New Pt Level 4 (28567) Diagnoses Right leg pain M79.604 Right Achilles tendinitis M76.61 Insertional Achilles tendinopathy M76.60 Other enthesopathy of right foot and ankle M77.51 Rupture of right Achilles tendon S86.011A CPT Codes Podiatry Dressing - CPT: 60349 - Strapping of foot/ankle ([id number]) Time Spent (min) 48
[2025-02-03 12:48] VITALS: BMI 31.5
--- OUTSIDE RECORDS SUMMARY | 2025-02-03 14:28 | XMS_ITS | Clinical Summary ---
Author Organization [facility] Address [address] [place] [address] Care Team Providers Care Noxious Weeds And Pest Inspector Name Role Phone Pcp, No Primary Care Provider Unavailabl e Allergies Active Allergy Reactions Criticality Noted Date Comments Amoxicillin GI Intolerance/Nause a/Vomiting,Other (See Comments) Medium 10/01/2021 Medications Restasis 0.05 % ophthalmic emulsion Administer 1 drop to both eyes 2 times a day. 4 Active doxycycline (MONODOX) 100 MG capsule 1 capsule by Mouth/Oral Cavity route every 12 hours. 4 Active ibuprofen (MOTRIN) 600 MG tablet Take 600 mg by mouth every 6 hours as needed. Active LORazepam (ATIVAN) 2 MG tablet Take 1 Tablet by mouth daily as needed for Anxiety (acute panic with procedures). 4 Active valACYclovir (VALTREX) 500 MG tablet Take 500 mg by mouth. 4 Active predniSONE (DELTASONE) 20 MG tabletIndicatio ns:Acute bacterial bronchitis Take 2 tablets (40 mg total) by mouth daily. 10 tablet 4 Active albuterol (PROVENTIL HFA; VENTOLIN HFA) 108 (90 Base) MCG/ACT inhalerIndicati ons:Acute bacterial bronchitis Inhale 2 puffs 4 times daily (every 6 hours) as needed for wheezing or shortness of breath. 1 each 4 Active Social History Tobacco Use Types Packs/Day Years Used Date Smoking Tobacco: Never Assessed Sex and Gender Information Value Date Recorded Sex Assigned at Not on file Legal Sex Male 5:47 PM EST Gender Identity Not on file Sexual Orientation Not on file Last Filed Vital Signs Vital Sign Reading Time Taken Comments Blood Pressure 144/91 01/30/2024 6:15 PM EST Pulse 65 01/30/2024 6:15 PM EST Temperature 36.7 C (98 F) 01/30/2024 6:15 PM EST Respiratory Rate 16 01/30/2024 6:15 PM EST Oxygen Saturation 96% 01/30/2024 6:15 PM EST Inhaled Oxygen Concentration - - Weight 113 kg (250 lb) 01/30/2024 6:15 PM EST Height 182.9 cm (6') 01/30/2024 6:15 PM EST Body Mass Index 33.91 01/30/2024 6:15 PM EST Plan of Treatment Health Maintenance Due Date Last Done Comments Hepatitis C Virus Screening 1965 HIV Screening 09/06/1980 DTaP/Tdap/Td Vaccines (1 - Tdap) 09/06/1986 Hepatitis B Vaccines (1 of 3 - 19+ 3-dose series) 09/06/1986 Colonoscopy 09/06/2012 Pneumococcal Vaccines 50+ (1 of 1 - PCV) 09/06/2017 Zoster (Shingles) Vaccine (1 of 2) 09/06/2017 Influenza Vaccine 10/03/2024 COVID-19 Vaccine ( - season) 2024 01/17/2021, 06/05/2020, 05/08/2020 RSV Vaccine 50 years and old er and Patients (1 - 1-dose 75+ series) 09/06/2042 Insurance [id number] Care Teams Noxious Weeds And Pest Inspector Relationship Specialty Start Date End Date Pcp, No PCP - General 01/30/24
--- OUTSIDE RECORDS SUMMARY | 2025-02-03 14:30 | XMS_ITS | Clinical Summary ---
Author Organization [address] [place] [address] [place] [phone] Phone Care Team Providers Care Wedding Coordinator Name Role Phone Yohan Mccarthy Primary Care Provider [phone] Allergies Active Allergy Reactions Criticality Noted Date Comments Amoxicillin Other Medium 10/01/2021 Diph,Pertus(Acel),Tet Ped (Pf) High 12/10/2009 SYNCOPAL EPISODES TO ALL INJECTIONS AND HE IS ALSO CLOSTROPHOBIC Medications LORazepam (ATIVAN) 2 mg tablet Take 1 Tablet by mouth daily as needed for Anxiety (acute panic with procedures). 4 Active ibuprofen (ADVIL,MOTRIN) 600 mg tablet Take 600 mg by mouth every 6 hours as needed. Active CYCLOSPORINE OPHT apply to the eye. Bid Dr Rice Active naproxen (EC NAPROSYN) 500 mg EC tablet Take 1 tablet twice a day for 14 days. Take with food 28 tablet 4 Active fluticasone propionate (FLONASE) 50 mcg/actuation nasal spray Administer 2 sprays into each nostril 1 (one) time each day. 16 g 4 Active ipratropium (ATROVENT) 42 mcg (0.06 %) nasal spray Administer 2 sprays into each nostril 2 (two) times a day. 15 mL 11 4 Active semaglutide (RYBELSUS) 3 mg tabletIndication s:Routine general medical examination at a health care facility,Rotator cuff tendinitis, right,Obesity without serious comorbidity, unspecified class, unspecified obesity type,Sore throat,Acute cough Take 1 tablet (3 mg total) by mouth 1 (one) time each day before breakfast. Take with 4 ounces (1/2 cup) of water on empty stomach, 30 min prior to other medication or food. 30 tablet 5 4 Active valACYclovir (VALTREX) 500 mg tablet TAKE 1 TABLET BY MOUTH EVERY DAY 30 tablet 5 5 Active typhoid (VIVOTIF) SR capsule vaccine Take 1 capsule by mouth every other day for 7 days. Do not crush, chew, or split. 4 capsule 5 02/11/20 25 Active Active Problems Problem Noted Date Diagnosed Date Genital herpes 01/21/2024 Rotator cuff tendinitis, right 04/02/2018 Acromioclavicular joint arthritis 04/02/2018 Overview (01/21/2024): Follows with physiatry. S/p MRI right shoulder 03/2018 Needle phobia 08/13/2017 Overview (01/21/2024): VERY SENSITIVE TO NEEDLE STICKS ; CLAUSTROPHOBIA Overweight 07/19/2017 Seasonal allergic rhinitis 05/30/2017 Back pain 01/12/2009 Overview (01/21/2024): History of lumbar spine stenosis status post discectomy. Pain has resolved upon 50 pound weight loss Encounters Date Type Department Care Team Description 02/02/2025 8:20 AM EST Lab Draw Station [address] Obesity, unspecified (Primary Dx); Vitamin D deficiency; Screening for lipoid disorders; Chronic fatigue; Family history of endocrine and metabolic disease; Screening for phenylketonuria (PKU); Personal history of nutritional deficiency; Anemia, unspecified; Impaired fasting glucose; Vitamin B12 deficiency anemia; Routine general medical examination at a health care facility; Rotator cuff tendinitis, right 02/02/2025 Results Follow-[facility] [address] [phone] Yohan Mccarthy PA from Last 3 Months Immunizations Immunization Administration Dates Next Due Moderna SARS-CoV-2 COVID-19, mRNA, LNP-S, preservative free 01/17/2021,06/05/2020,05/08/2020 Surgical History Surgery Date Site/Laterality Comments EYE SURGERY multiple Left upper eyelid surgery, done by Dr. Makr Bal [facility]. BACK SURGERY 2001 Lumbar discectomy BACK SURGERY 10/04/2023 - 11/03/2023 [facility] back surgery Medical History Medical History Date Comments Back pain 01/12/2009 DX:Back pain Genital herpes DX:Genital herpe s Overweight 07/19/2017 DX:Overweight Seasonal allergic rhinitis 05/30/2017 DX:Se asonal allergic rhinitis Needle phobia 08/13/2017 DX:Needle phobia ; COMMENT: VERY SENSITIVE TO NEEDLE STICKS ; CLAUSTROPHOBIA Acromioclavicular joint arthritis 04/02/2018 DX:Acromioclavicular joint arthritis; COMMENT: Follows with physiatry. S/p MRI right shoulder 03/2018 History of COVID-19 08/2021 DX:History o f COVID-19 Family History Medical History Relation Name Comments healthy Father Heart attack Maternal Grandmother diabete s Blindness Neg Hx Cataracts Neg Hx Glaucoma Neg Hx Macular degeneration Neg Hx Strabismus Neg Hx Relation Name Status Comments Father Maternal Grandmother Social History Tobacco Use Types Packs/Day Years Used Date Smoking Tobacco: Never Smokeless Tobacco: Never Tobacco Cessation:Counseling Given: Not Answered Alcohol Use Standard Drinks/Week Comments Yes 0 [...] for your loved ones. For example, child care group leader or elderly care for an older adult? 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 on file Not on file Not on file Obstetrics History Last Filed Vital Signs Vital Sign Reading Time Taken Comments Blood Pressure 130/80 03/03/2024 8:03 AM EST Pulse 61 03/03/2024 7:35 AM EST Temperature 36.7 C (98 F) 03/03/2024 7:35 AM EST Respiratory Rate 16 03/03/2024 7:35 AM EST Oxygen Saturation 98% 02/19/2024 9:16 AM EST Inhaled Oxygen Concentration - - Weight 116 kg (255 lb) 03/03/2024 7:35 AM EST Height 182.9 cm (6') 03/03/2024 7:35 AM EST Body Mass Index 34.58 03/03/2024 7:35 AM EST Plan of Treatment Upcoming Encounters Date Type Department Care Team (Late st Contact Info) Description 03/17/2025 8:30 AM EST Office Visit [facility] [address] [phone] Yohan Mccarthy PA [address] [place] [phone] Health Maintenance Due Date Last Done Comments Hepatitis B Vaccines (1 of 3 - 19+ 3-dose series) 09/06/1986 Pneumococcal Vaccine: 50+ Years (1 of 1 - PCV) 09/06/2017 Depression Screening 03/05/2024 03/02/2024 COVID-19 Vaccine (4 - 2024-2 6 season) 2024 01/17/2021, 06/05/2020, 05/08/2020 Social Influencers of Health Screening 03/02/2025 03/02/2024 Colorectal Cancer Screening: FIT-DNA (Cologuard) 09/22/2025 09/22/2022, 09/22/2022 Cholesterol Screening (Lipid Panel) 02/02/2030 02/02/2025, 09/12/2021 RSV Immunization Adult Patients (1 - 1-dose 75+ series) 09/06/2042 HIV Screening Completed 10/17/2018 Hepatitis C Screening Completed 10/17/2018 DTaP,Tdap,and Td Vaccines Discontinued HIB Vaccines Aged Out No longer eligi ble based on patient's age to complete this topic HPV Vaccines Aged Out No longer eligi ble based on patient's age to complete this topic Hepatitis A Vaccines Aged Out No long er eligible based on patient's age to complete this topic IPV Vaccines Aged Out No longer eligi ble based on patient's age to complete this topic Influenza Vaccine Discontinued MMR Vaccines Aged Out No longer eligi ble based on patient's age to complete this topic Meningococcal ACWY Vaccine Aged Out N o longer eligible based on patient's age to complete this topic Meningococcal B Vaccine Aged Out No l onger eligible based on patient's age to complete this topic RSV Immunization Patients Under 20 months Aged Out No longer eligible based on patient's age to complete this topic Varicella Vaccines Aged Out No longer eligible based on patient's age to complete this topic Zoster Vaccines Discontinued Procedures Procedure Name Priority Date/Time Associated Diagnosis Comments COMPREHENSIVE METABOLIC PANEL Routine 02/02/2025 8:31 AM EST Routine general medical examination at a health care facility Rotator cuff tendinitis, right PROSTATE SPECIFIC ANTIGEN SCREEN Routine 02/02/2025 8:31 AM EST Routine general medical examination at a health care facility Rotator cuff tendinitis, right VITAMIN D 25 HYDROXY Routine 02/02/2025 8:31 AM EST Obesity, unspecified Vitamin D deficiency Screening for lipoid disorders Chronic fatigue Family history of endocrine and metabolic disease Screening for phenylketonuria (PKU) Personal history of nutritional deficiency Anemia, unspecified Impaired fasting glucose Vitamin B12 deficiency anemia THYROID STIMULATING HORMONE WITH REFLEX TO FREE [...] Impaired fasting glucose Vitamin B12 deficiency anemia FIT-DNA Routine 09/22/2022 HEPATITIS C SCREENING Routine 10/17/2018 HIV SCREENING Routine 10/17/2018 from Last 3 Months or Most Recently Relevant to Health Maintenance Results * Prostate specific antigen screen (02/02/2025 8:31 AM EST) PSA 0.54 0.00 - 4.00 ng/mL 02/02/2025 11:13 AM EST [facility] Blood Venous blood specimen / Unknown Venipuncture / Unknown 02/02/2025 8:31 AM EST 02/02/2025 8:31 AM EST Narrative [facility] - 02/02/2025 11:13 AM EST The Siemens achvr IM Chemiluminescent Immunoassay is used. Results obtained with different assay methods or kits cannot be used interchangeably. Results cannot be interpreted as absolute evidence of the presence or absence of malignant disease. Yohan ELAINE LAB BLOOD ORDERABLES Bella willingham Result [facility] [address] [place] [address], [place] [phone] * Thyroid stimulating hormone with reflex to free t4 and free t3 (02/02/2025 8:31 AM EST) TSH 1.72 0.40 - 4.00 mcIU/mL 02/02/2025 11:18 AM [facility] Blood Venous blood specimen / Unknown Venipuncture / Unknown 02/02/2025 8:31 AM EST 02/02/2025 8:31 AM EST Hetal Reyes LAB BLOOD ORDERABLES Final Resul t [facility] [address] [place] [address], [place] [phone] * (ABNORMAL) Lipid panel with reflex to direct LDL (02/02/2025 8:31 AM EST) Cholesterol 211(H) 0 - 200 mg/dL 02/02/2025 11:22 AM [facility] Triglycerides 143 0 - 150 mg/dL 02/02/2025 11:22 AM [facility] HDL 53 >=40 mg/dL 02/02/2025 11:22 AM [facility] LDL Calculated 129(H) 0 - 100 mg/dL 02/02/2025 11:22 AM [facility] Comment:Estimated LDL Calcul ated using equation: Total cholesterol - HDL cholesterol - (Triglycerides/5) VLDL Cholesterol Kei 28.6 mg/dL 02/02/2025 11:22 AM [facility] Non HDL Chol. (LDL+VLDL) 158(H) <145 mg/dL 02/02/2025 11:22 AM [facility] Chol/HDL Ratio 4.0 0.0 - 4.4 02/02/2025 11:22 AM [facility] Blood Venous blood specimen / Unknown Venipuncture / Unknown 02/02/2025 8:31 AM EST 02/02/2025 8:31 AM EST [facility] LAB BLOOD ORDERABLES Final Resul t Performing Organization Address City/[facility]/ZIP Co de Phone Number [facility] [address] [place] [address], [place] [phone] * Insulin, total (02/02/2025 8:31 AM EST) Insulin 15.6 3.0 - 25.0 mcIU/mL 02/02/2025 1:39 PM EST [facility] Blood Venous blood specimen / Unknown Venipuncture / Unknown 02/02/2025 8:31 AM EST 02/02/2025 8:31 AM EST Narrative [facility] - 02/02/2025 1:39 PM EST Insulin reference range based on fasting status. Insulin values vary in non-fasting individuals. [facility] LAB BLOOD ORDERABLES Final Resul t Performing Organization Address [facility] de Phone Number [facility] [address] [place] [address], [place] [phone] * Vitamin D 25 hydroxy (02/02/2025 8:31 AM EST) Vit D, 25-Hydroxy 30.8 30.0 - 80.0 ng/mL 02/02/2025 11:17 AM EST [facility] Blood Venous blood specimen / Unknown Venipuncture / Unknown 02/02/2025 8:31 AM EST 02/02/2025 8:31 AM EST [facility] LAB BLOOD ORDERABLES Final Resul t Performing Organization Address [facility]/ZIP Co de Phone Number [facility] [address] [place] [address], [place] [phone] * Hemoglobin A1c (02/02/2025 8:31 AM EST) Pathologist [facility] Hemoglobin A1C 5.3 <6.5 % LAB CHEMISTRY METHOD 02/02/2025 2:05 PM EST [facility] Mean Bld Glu Estim. 105 mg/dL LAB CHEMISTRY METHOD 02/02/2025 2:05 PM EST [facility] Blood Venous blood specimen / Unknown Venipuncture / Unknown 02/02/2025 8:31 AM EST 02/02/2025 8:31 AM EST [facility] LAB BLOOD ORDERABLES Final Resul t Performing Organization Address [facility] Co de Phone Number [facility] [address] [place] [address], [place] [phone] * Folate (02/02/2025 8:31 AM EST) [facility] Folate >24.0 >=5.4 ng/ml 02/02/2025 11:23 AM EST [facility] Blood Venous blood specimen / Unknown Venipuncture / Unknown 02/02/2025 8:31 AM EST 02/02/2025 8:31 AM EST Narrative [facility] - 02/02/2025 11:23 AM EST Over the counter supplements containing high doses of biotin may interfere with this assay. If interference is suspected, patients shoud be retested after refraining from biotin supplements for 72 hours. [facility] LAB BLOOD ORDERABLES Final Resul t [facility] [address] [place] [address], [place] [phone] * Vitamin B12 (02/02/2025 8:31 AM EST) [facility] Vitamin B-12 806 211 - 911 pcg/mL 02/02/2025 11:17 AM [facility] Blood Venous blood specimen / Unknown Venipuncture / Unknown 02/02/2025 8:31 AM EST 02/02/2025 8:31 AM EST Hetal Reyes LAB BLOOD ORDERABLES Final Resul t [facility] [address] [place] [address], * (ABNORMAL) Comprehensive metabolic panel (02/02/2025 8:31 AM EST) Sodium 141 133 - 145 mmol/L 02/02/2025 11:22 AM [facility] Potassium 4.4 3.5 - 5.5 mmol/L 02/02/2025 11:22 AM [facility] Chloride 103 96 - 110 mmol/L 02/02/2025 11:22 AM [facility] CO2 27 21 - 32 mmol/L 02/02/2025 11:22 AM [facility] Anion Gap 11 3 - 11 02/02/2025 11:22 AM [facility] Glucose 102(H) 70 - 100 mg/dL 02/02/2025 11:22 AM [facility] BUN 17 5 - 25 mg/dL 02/02/2025 11:22 AM [facility] Creatinine 1.10 0.70 - 1.30 mg/dL 02/02/2025 11:22 AM [facility] eGFR 78 >=60 mL/min/1. 73m2 02/02/2025 11:22 AM [facility] Comment:Calculation based on the Chronic Kidney Disease Epidemiology Collaboration (CKD-EPI) equation refit without adjustment for race. BUN/Creatinine Ratio 15.5 02/02/2025 11:22 AM [facility] Calcium 8.7 8.5 - 10.5 mg/dL 02/02/2025 11:22 AM [facility] AST (SGOT) 22 10 - 42 unit/L 02/02/2025 11:22 AM [facility] ALT (SGPT) 34 10 - 60 unit/L 02/02/2025 11:22 AM [facility] Alkaline Phosphatase 113 42 - 121 unit/L 02/02/2025 11:22 AM [facility] Total Protein 7.0 6.0 - 8.0 g/dL 02/02/2025 11:22 AM [facility] Albumin 4.6 3.2 - 5.0 g/dL 02/02/2025 11:22 AM [facility] Total Bilirubin 0.5 0.0 - 1.4 mg/dL 02/02/2025 11:22 AM [facility] Blood Venous blood specimen / Unknown Venipuncture / Unknown 02/02/2025 8:31 AM EST 02/02/2025 8:31 AM EST Yohan ELAINE LAB BLOOD ORDERABLES Bella l Result [facility] [address] [place] [address], * FIT-DNA (Cologuard) (09/22/2022) [facility] Colorectal Cancer Screening: FIT-DNA (Cologuard) No interpretation , abstracted Historical Provider HEALTH MAINTENANCE Final Result * HIV Screening (10/17/2018) [facility] HIV Screening abstracted Historical Provider HEALTH MAINTENANCE Final Result * Hepatitis C Screening (10/17/2018) [facility] Hepatitis C Screening abstracted us Historical Provider MD HEALTH MAINTENANCE Final Result from Last 3 Months or Most Recently Relevant to Health Maintenance Insurance [facility] [place] [id number] [facility] Care Teams Wedding Coordinator Relationship Specialty Start Date End Date Yohan Mccarthy PA [address] [place] [address] PCP - General 10/24/23
--- OUTSIDE RECORDS SUMMARY | 2025-02-03 14:30 | XMS_ITS ---
Author Name [facility] Organization Unknown History of Medication Use Medication Directions Dispensed Refills Start Date End Date Stat Zepbound 15 mg/0.5 mL subcutaneous pen injector 1.5 mg every week by sub-q route. 05/03/2024 active azithromycin (ZITHROMAX) 250 MG tablet Take 2 tabs PO on day one and one tabs on days 2-5 #6 01/30/2024 5 active albuterol (PROVENTIL HFA; VENTOLIN HFA) 108 (90 Base) MCG/ACT inhaler Inhale 2 puffs 4 times daily (every 6 hours) as needed for wheezing or shortness of breath. 01/30/2024 active predniSONE (DELTASONE) 20 MG tablet Take 2 tablets (40 mg total) by mouth daily. 01/30/2024 active doxycycline (MONODOX) 100 MG capsule 1 capsule by Mouth/Oral Cavity route every 12 hours. 01/25/2024 active valACYclovir (VALTREX) 500 MG tablet Take 500 mg by mouth. 12/13/2023 active Restasis 0.05 % ophthalmic emulsion Administer 1 drop to both eyes 2 times a day. 11/21/2023 active LORazepam (ATIVAN) 2 MG tablet Take 1 Tablet by mouth daily as needed for Anxiety (acute panic with procedures). 10/24/2023 active azithromycin 250 mg tablet TAKE 2 TABLETS BY MOUTH TODAY, THEN TAKE 1 TABLET DAILY FOR 4 DAYS DIRECTED 5 completed doxycycline hyclate 100 mg capsule TAKE 1 CAPSULE ORALLY 2 TIMES A DAY FOR 10DAYS WITH AT LEAST 8OZ OF WATER DON'T LIE DOWN FOR 30 MIN 5 completed doxycycline monohydrate 100 mg capsule TAKE 1 CAPSULE BY MOUTH TWICE A DAY 5 completed albuterol sulfate HFA 90 mcg/actuation aerosol inhaler INHALE 2 PUFFS 4 TIMES DAILY (EVERY 6 HOURS) NEEDED FOR WHEEZING OR SHORTNESS OF BREATH. active clindamycin 1 % topical gel APPLY TO AREA BACK OF SCALP EVERY DAY active fluticasone propionate 50 mcg/actuation nasal spray,suspension SPRAY 2 SPRAYS INTO EACH NOSTRIL EVERY DAY active ipratropium bromide 42 mcg (0.06 %) nasal spray ADMINISTER 2 SPRAYS INTO EACH NOSTRIL 2 TIMES A DAY. active methocarbamol 500 mg tablet TAKE 1 TABLET BY MOUTH 3 TIMES A DAY FOR SPASM active naproxen 500 mg tablet,delayed release TAKE 1 TABLET BY MOUTH TWICE A DAY FOR 14 DAYS. TAKE WITH FOOD active prednisone 10 mg tablets in a dose pack PLEASE SEE ATTACHED FOR DETAILED DIRECTIONS active prednisone 20 mg tablet TAKE 2 TABLETS (40 MG TOTAL) BY MOUTH DAILY. active Restasis 0.05 % eye drops in a dropperette 1 drop twice a day by ophthalmic route. active valacyclovir 500 mg tablet 500 mg every day by oral route. active Zepbound 10 mg/0.5 mL subcutaneous pen injector INJECT 10MG SUBCUTANEOUSLY ONCE WEEKLY X 4 WEEKS. TOO SOON TRY 7.19.25 active Zepbound 12.5 mg/0.5 mL subcutaneous pen injector INJECT 12.5MG SUBCUTANEOUSLY ONCE WEEKLY X 4 WEEKS active Zepbound 2.5 mg/0.5 mL subcutaneous pen injector INJECT 2.5MG SUBCUTANEOUSLY ONCE WEEKLY X 4 WEEKS active Zepbound 5 mg/0.5 mL subcutaneous pen injector INJECT 5MG SUBCUTANEOUSLY ONCE WEEKLY FOR 4 WEEKS active Zepbound 7.5 mg/0.5 mL subcutaneous pen injector INJECT 7.5MG SUBCUTANEOUSLY ONCE WEEKLY X 4 WEEKS active ibuprofen (MOTRIN) 600 MG tablet Take 600 mg by mouth every 6 hours as needed. active Allergies Allergen Reaction Severity Comment Documented Date Source Statu s AMOXICILLIN OTHER (SEE COMMENTS) 10/01/2021 [facility] T active Problems Problem Status Onset Date Problem Type Date of Resolution Source Arthritis of right foot active 2024-12-11 ProblemAct [facility] Right Achilles tendinitis active 2024-12-11 ProblemAct [facility] Acute bacterial bronchitis active EncounterDiagnosisAct [facility] Encounters Encounter Type Encounter Reason Primary Diagnosis Location Date Ambulatory [facility] 12/31/2024 Ambulatory [facility] 12/15/2024 Ambulatory [facility] 12/14/2024 Ambulatory [facility] 12/11/2024 [facility] 12/11/2024 Ambulatory [facility] 12/11/2024 [facility] 12/11/2024 [facility]ulatory [facility] 12/11/2024 [facility]ulatory [facility] 12/08/2024 Ambulatory [facility] 01/30/2024 Care Team Organization Name Specialty Phone Email Start Date End Da te [facility] Picket PCP Soft Iron Inspector 02/02/2024 05/21/2024 [facility] 01/31/2024 [facility] NO PCP Primary Care 01/31/2024 [facility] Reva Gannon Primary Care 11/09/2022 10/22/2023 [facility] Edwin Jimenez Primary Care 05/10/2022 024 [facility] Surya Putnam Primary Care 01/10/202210/03
--- OUTSIDE RECORDS SUMMARY | 2025-02-03 14:30 | XMS_ITS | Encounter Summary ---
Author Organization [facility] Address [address] [place] [address] Care Team Providers Care Electric Meter Tester Name Role Phone Yohan Mccarthy Primary Care Provider [phone] Encounter Details Date Type Department Care Team ([facility] st Contact Info) Description 02/02/2025 Results Follow-Up Adult Medicine [address] [address] Yohan Mccarthy PA [address] [place] [address] Social History Tobacco Use Types Packs/Day Years [...] care for your loved ones. For example, children's librarian or elderly care for an older adult? 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 Not on file Not on file documented as of this encounter Plan of Treatment Upcoming Encounters Date Type Department Care Team (Late st Contact Info) Description 03/17/2025 8:30 AM EST Office Visit Adult Medicine [address] [address] Yohan Mccarthy PA [address] [place] [address] documented as of this encounter Visit Diagnoses Not on filedocumented in this encounter Additional Health Concerns Assessment Noted Time PHQ-9 Depression Total Score: 0 03/02/20 24 2:04 PM EST documented as of this encounter Care Teams Electric Meter Tester Relationship Specialty Start Date End Date Yohan Mccarthy PA [address] [place] [address] PCP - General 10/24/23 documented as of this encounter
== END 2025-02-03 13:34 | disposition home or self-care (01) ==
LOC: HO.HPODS 12:35
PROVIDERS: Visit Provider Student in an Organized Health Care Education/Training Program
DX: M76.61 Achilles tendinitis, right leg (principal); M76.60 Achilles tendinitis, unspecified leg; M77.51 Other enthesopathy of right foot and ankle; S86.011A Strain of right Achilles tendon, initial encounter
CPT/HCPCS: 29540; 99204

== ENCOUNTER → 2025-02-03 12:34 | Outpatient (BNVA) | payer OTHER, SELFPAY | PROVIDERS: Visit Provider Student in an Organized Health Care Education/Training Program | DX: S86.011A Strain of right Achilles tendon, initial encounter (principal); M77.51 Other enthesopathy of right foot and ankle; M76.60 Achilles tendinitis, unspecified leg; M76.71 Peroneal tendinitis, right leg; X58.XXXA Exposure to other specified factors, initial encounter; Y93.9 Activity, unspecified; Y92.9 Unspecified place or not applicable; Y99.9 Unspecified external cause status | CPT/HCPCS: 29540 ==

== ENCOUNTER 2025-02-12 08:42 | Outpatient (AMB) | payer OTHER, SELFPAY ==
[2025-02-12 08:48] VITALS: BMI 31.5
--- NOTE | 2025-02-12 08:48 | A.OFFVIS_ITS ---
Vital Signs 02/12/25 08:48 Height 6 ft Weight 232 lb 4 oz BMI 31.5 Intake Visit Reasons: right achilles insertional tendinopathy Intake Note: Ajay is a 59 year old male who presents today for a follow up on his right achilles insertional tendinopathy. Patient reports he is still in mild pain, he also reports has not had the MRI scheduled and his script was not sent to the pharmacy. Allergies amoxicillin Adverse Reaction (Intermediate, Verified 02/12/25 08:56) Nausea HPI Comments Details: The patient is a 59 year old male presenting for a follow-up for right insertional Achilles tendinopathy. He reports ongoing heel pain, which he rates a 4/10 while not engaging in activity. 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 Patient states walking even short distances, such as across a parking lot, causes significant pain that requires him to stop. His previous treatment has included physical therapy with massage and stretching on a balance board, and he previously wore Crocs for two months due to heel sensitivity. The patient states that meloxicam has assisted in alleviating some of his pain and would like a refill prior to his upcoming month long trip. Patient states he was unable to have his MRI scheduled prior to this visit. He denies any new pedal injuries. He denies any other pedal concerns. [facility] Medical History (Updated 02/17/25 @ 10:38 by Renee Roberts DPM) Erin's deformity of right heel Rupture of right Achilles tendon Insertional Achilles tendinopathy Other enthesopathy of right foot and ankle Right Achilles tendinitis Right leg pain Claustrophobia Herpes Back pain Severe needle phobia Anxiety Insomnia Surgical History (Updated 10/24/23 @ 15:28 by Meme Moise RN) History of blepharoplasty (~04/2022) Hx of microdiscectomy (~2000) Social History (Updated 10/24/23 @ 15:35 by Meme Moise RN) Household Members: Spouse Housing: House Are you a primary animal caretaker supervisor to a significant other at home: No Do you presently have visiting nurse or other home services: No Comment: aware of trip hazard Patient Tobacco Use Status: Never used Tobacco Review of Systems Const Details: - Musculoskeletal: Reports ongoing heel pain rated 4/10 with minimal activity, which is exacerbated by walking. Reports a history of forefoot arthritis and sensitivity on the back of the heel. All systems reviewed & are unremarkable except as noted in HPI and below Physical Exam Vital Signs: BMI result Body Mass Index 31.5 Extrem Other: Right lower extremity focused physical exam: Derm: No open lesions abrasions or wounds noted. No erythema, ecchymosis, or discoloration noted. No hyperkeratotic areas or maceration noted. No clinical signs of infection noted. Skin supple and turgor within normal limits. Vascular: DP/PT pulses palpable. Capillary refill time less than 3 seconds. Temperature gradient warm to warm. No varicosities noted. No edema noted. Neuro: Protective sensation is grossly intact. MSK: Visible and palpable bony prominence noted to the posterior aspect of the heel. Pain to palpation noted at the distal insertion point of the Achilles tendon on the posterior aspect of the heel. No pain on palpation along the mid- substance or proximal aspect of the Achilles tendon. Gastrocnemius equinus noted upon silfverskoid testing. Ankle range of motion demonstrates increased dorsiflexion with the knee flexed. Hallux limitus noted. Antalgic gait unassis lemuel noted with shuffling of the right foot. Results Reviewed Results Reviewed: Ordered right ankle MRI to be performed prior to next visit. Podiatry Read of Outpatient right ankle and foot xrays: Hallux limitus noted. Posterior calcaneal bone spur and erin's deformity consistent with Instertional Achilles Tendinopathy. Assessment & Plan Assessment & Plan (1) Rupture of right Achilles tendon: Code(s): S86.011A - Strain of right Achilles tendon, initial encounter Category: Medical (2) Right leg pain: Code(s): M79.604 - Pain in right leg Category: Medical (3) Insertional Achilles tendinopathy: Code(s): M76.60 - Achilles tendinitis, unspecified leg Category: Medical (4) Right Achilles tendinitis: Code(s): M76.61 - Achilles tendinitis, right leg Category: Medical (5) Other enthesopathy of right foot and ankle: Code(s): M77.51 - Other enthesopathy of right foot and ankle Category: Medical (6) Erin's deformity of right heel: Code(s): 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 I discussed the patient's ongoing heel pain and the significant relief he has experienced with meloxicam. We addressed the difficulties he encountered with ob taining an MRI and his medication refill. I explained that I would provide a new prescription for meloxicam 7.5 mg to be taken twice daily. I recommended [id number] gel heel cushions for comfort, particularly during his upcoming travel. Regarding his physical therapy, I advised him to continue with gentle range of motion and stretching but to hold off on strengthening exercises until he returns to avoid aggravating the condition while on history. We also discussed a potential surgical plan and discussed the postoperative protocol. The patient will follow up in one month to proceed with surgical plan. - A new prescription for meloxicam 7.5 mg b.i.d. was provided. - Recommended the use of [id number] gel heel cushions for symptomatic relief, particularly during his upcoming trip. - Advised the patient to continue with light range of motion and stretching exercises but to postpone strengthening exercises until after his trip to avoid exacerbation. - Discussed a tentative plan for surgical intervention and the postoperative protocol. - Advised patient to wear supportive shoe gear and to avoid barefoot walking. - Advised patient to bring cam boot with him on his trip, to be worn with increased activity. - Patient may be weight-bearing as tolerated to the right lower extremity. RTC in 6 weeks. Medications: New meloxicam 7.5 mg PO BID 60 tabs 1RF M76.60 - Achilles tendinitis, unspecified leg, M76.61 - Achilles tendinitis, right leg, M77.51 - Other enthesopathy of right foot and ankle, M79.604 - Pain in right leg, S86.011A - Strain of right Achilles tendon, initial encounter Discontinued meloxicam Discontinued Reason: Change Referral Type 15 mg PO DAILY 30 tabs 0RF M79.604 - Pain in right leg Coding Level of Care Code Est Pt Level 4 (22698) Diagnoses Rupture of right Achilles tendon S86.011A Right leg pain M79.604 Insertional Achilles tendinopathy M76.60 Right Achilles tendinitis M76.61 Other enthesopathy of right foot and ankle M77.51 Erin's deformity of right heel M92.61 Time Spent (min) 34
== END 2025-02-12 09:21 | disposition home or self-care (01) ==
LOC: HO.HPODS 08:42
PROVIDERS: Visit Provider Student in an Organized Health Care Education/Training Program
DX: S86.011A Strain of right Achilles tendon, initial encounter (principal); M79.604 Pain in right leg; M76.60 Achilles tendinitis, unspecified leg; M76.61 Achilles tendinitis, right leg; M77.51 Other enthesopathy of right foot and ankle; M92.61 Juvenile osteochondrosis of tarsus, right ankle
CPT/HCPCS: 99214